=== PATIENT | male | born 1960 | race African-American/Black ===

== ENCOUNTER 2016-12-26 09:14 | Day surgery (SDC) | payer OTHER ==
[~2016-12-26] VITALS: Ht 175.3 cm; Wt 113.4 kg
[~2016-12-26 09:14] MED LIST: HYDROCHLOROT25 MG PO; ISOSORB MONO30 MG PO; NIFEDIPINE ER60 MG PO; TAMSULOSIN HCL0.4 MG PO; ZESTRIL10 M1 PO
[2016-12-26 11:47] VITALS: BP 167/98
== END 2016-12-26 12:10 | disposition home or self-care (01) | DRG 951 ==
LOC: ENDO 09:14
PROVIDERS: ATTEND Internal Medicine Gastroenterology
PROC: 0DBL8ZX Excision of Transverse Colon, Via Natural or Artificial Opening Endoscopic, Diagnostic (ICD-10-PCS; principal; 2016-12-26)
DX: Z12.11 Encounter for screening for malignant neoplasm of colon (principal); I10 Essential (primary) hypertension; D12.3 Benign neoplasm of transverse colon; K64.4 Residual hemorrhoidal skin tags; K57.30 Diverticulosis of large intestine without perforation or abscess without bleeding; K64.8 Other hemorrhoids; E78.00 Pure hypercholesterolemia, unspecified; Z80.0 Family history of malignant neoplasm of digestive organs